=== PATIENT | female | born 1955 | race Caucasian/White ===

== ENCOUNTER → 2017-12-18 | Outpatient (CLI) | payer OTHER ==
[~2017-12-18] MED LIST: ALEVE220 MG PO; DESYREL150 MG PO; EXCEDRIN CAPLE1 EACH PO; LEXAPRO 10 MG T10 M1 PO; LEXAPRO20 MG PO; MEDROLDOSEPACK PO; NEURONTIN 300300 M1 PO
== END ==
LOC: M.MRI 16:55
DX: M47.892 Other spondylosis, cervical region (principal); M48.02 Spinal stenosis, cervical region

== ENCOUNTER → 2017-12-25 | Outpatient (CLI) | payer OTHER ==
--- NOTE | 2018-01-07 08:21 | PAINCON ---
[address] [address] PAIN MANAGEMENT CONSULTATION Name: JONAS MADRID Jessica Room: [facility] Hue#: [id number] Admission: 12/25/17 Attend Phys: Shakeel Monroy MD Discharge: Date of : 59 Report #: [id number] THIS REPORT FOR: //name// CC: Shakeel Main MD DATE OF SERVICE: 12/25/2017 CHIEF COMPLAINT: Pain in the neck and down into both arms with numbness and tingling. FOLLOWUP HISTORY: The patient is a 62-year-old female, who has been referred to the pain clinic for evaluation of bilateral arm pain with numbness and tingling. She states that she has had some problems for some period of time. It has been going on for greater than 3 years. She has undergone physical therapy. Did not note a significant improvement in her situation after that. She has been using gabapentin 300 mg and noticed a small benefit from that, but continues to have pain, which is still problematic. She has not had surgery. She notes that the pain can be variable. 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 Notes that toward the end of the day, her pain can be more problematic. She rates it at this juncture as a 9/10, during a normal day it can be a 4/10, in the evening by the time she sits down and rests, it can often times rise to the level of 6/10. Denies any history of trauma. She describes it as continuous, throbbing and the pain sometimes is worse when she is lying down. ALLERGIES: No known drug allergies. CURRENT MEDICATIONS: Gabapentin 300 mg tablets 2 tablets t.i.d., trazodone 150 mg at bedtime, calcium, vitamin D, and escitalopram 20 mg one-half tablet daily. PAST MEDICAL HISTORY: Cervical radiculopathy, OCD, back pain, family history of paralysis, irritable bowel syndrome, menopause, mixed hyperlipidemia, depression, plantar fasciitis. PAST SURGICAL HISTORY: Bilateral tubal ligation and hysterectomy in 05/2007. The patient still has both ovaries. FAMILY HISTORY: Positive for coronary artery disease in her father. Positive for colon cancer in her maternal grandfather. Positive type 2 diabetes in father. SOCIAL HISTORY: in 1996. Has 2 children. Denies use of alcoholic beverages. REVIEW OF SYSTEMS: Fatigue, headaches, wears glasses, glaucoma/cataracts, [place] [address] PAIN MANAGEMENT CONSULTATION Name: JONAS MADRID Room: [facility]#: [id number] Admission: 12/25/17 Attend Phys: Shakeel Monroy MD Discharge: Date of : 59 Report #: [id number] swelling in the feet and ankles, weakness of the muscles and joints, muscle pains or cramps, back pain, numbness and tingling sensation in the upper extremities, slow to heal easy bruising. PAIN CLINIC ASSESSMENT: 1. The patient is not being treated for osteoarthritis or rheumatoid arthritis. 2. Height 5 foot 3, weight 114 pounds, BMI is 20. 3. VITAL SIGNS: Blood pressure 98/45, heart rate 60, respiratory rate 16, room air saturation 98%, and temperature 97.6. 4. Pain intensity varies from a 4-9 depending on the time of day. 5. Fall risk. The patient has not fallen in the last 3 months. 6. Blood thinner. The patient is not on a blood thinner. 7. History of hypertension. The patient is not being treated for hypertension. 8. Opioid therapy greater than 6 weeks. The patient is not on opioid therapy greater than 6 weeks. 9. Risk assessment tool. 10. Functional assessment tool score 45/70. 11. Tobacco. The patient does not smoke. 12. Alcohol. The patient denies use of alcoholic beverages. LABORATORY DATA: MRI of the cervical spine dated 12/18/2017 reveals: 1. C3-C4, mild posterior disk bulging with mild effacement of the ventral thecal sac. There is bilateral degenerative facet disease, left greater than right. Left-sided neural foraminal narrowing is also present. 2. C4-C5 disk space narrowing and disk desiccation. There is a posterior disk osteophyte complex, which effaces the ventral thecal sac. The AP diameter of the central canal remains within normal limits approximately 12 mm. There is bilateral facet hypertrophy and symmetric bilateral neural foraminal narrowing. 3. C5-C6 disk space narrowing and disk desiccation with mild posterior disk bulging. There is subtle effacement of the ventral thecal sac. There is mild left-sided neural foraminal narrowing. The facet joints are unremarkable. 4. C6-C7 disk space narrowing and disk desiccation with a posterior disk osteophyte complex causing effacement of the ventral thecal sac. The AP diameter of the central canal is mildly narrowed at 10.3 mm. There is a T2 hyperintense signal along the left ventral surface of the cord, which measures 2 mm transverse x 8 mm craniocaudal. 5. C7-T1 mild posterior disk bulge without central canal or specific neural foraminal stenosis. PHYSICAL EXAMINATION: GENERAL: The patient is a well-developed and well-nourished white female. APPEARANCE: Appears her stated age. ORIENTATION: The patient is oriented x 3. AFFECT: The patient's affect is appropriate. HEENT: Normocephalic and atraumatic. Extraocular eye muscles intact. Hearing within normal limits. Sclerae nonicteric. [place] [address] PAIN MANAGEMENT CONSULTATION Name: MERCYJONAS Jessica Room: [facility]#: [id number] Admission: 12/25/17 Attend Phys: Shakeel Monroy MD Discharge: Date of : 59 Report #: [id number] NECK: Without JVD or bruits. Clear to auscultation. HEART: Regular rate. ABDOMEN: Nontender. MUSCULOSKELETAL: Without significant scoliosis, kyphosis or lordosis. EXTREMITIES: Upper extremities, judged to be 5/5 for the major muscle groups. Deep tendon reflexes are +2 at the biceps bilaterally. Park Interpretive Ranger strength is 5/5. Lower extremity muscles are judged to be 5/5 without neurological complaints. The patient does have some feelings of pain in her neck with some radiating down into the arms levels bilaterally with some numbness and tingling in the arms. IMPRESSION: 1. Bilateral neck pain with lumbar radicular pain radiating down into both arms bilaterally, which has been problematic over the last 3 years. 2. Hysterectomy cancer in 2006. 3. History of back pain. 4. Postmenopausal osteoporosis. 5. Irritable bowel symptoms. 6. Hyperlipidemia. 7. Depression. 8. History of plantar fasciitis. 9. Obsessive compulsive disorder. PLAN: We discussed the treatment options with the patient. She continues to have pain and discomfort, which is problematic. This has happened over the last 3 years. She has tried physical therapy and other activities and modalities without significant improvement. She feels that the gabapentin is helpful, but still finds that pain is still problematic, particularly in the evening and as the day goes on. She works around a computer/with the computer and notes that this has some input on how her pain and discomfort in her arms is perceived at the end of the day. RECOMMENDATIONS: We will try a Medrol Dosepak. We will see whether or not this conservative method will be of benefit. If her pain continues to be problematic, we will consider a cervical epidural steroid injection in the near future. Risks and benefits of the procedure were discussed. The patient will call us if she has any problems with the Medrol Dosepak. We would like to thank you for letting us participate in her care. We hope she continues to improve. <ELECTRONICALLY SIGNED> By: Shakeel Monroy MD 01/07/18 0821 1648 1940N. Darci Monroy MD /vu
== END ==
LOC: M.PC 12-18 08:00
DX: M81.0 Age-related osteoporosis without current pathological fracture (principal); E78.5 Hyperlipidemia, unspecified; F32.9 Major depressive disorder, single episode, unspecified; M54.16 Radiculopathy, lumbar region; M72.2 Plantar fascial fibromatosis; F42.9 Obsessive-compulsive disorder, unspecified; Z87.39 Personal history of other diseases of the musculoskeletal system and connective tissue; Z90.710 Acquired absence of both cervix and uterus

== ENCOUNTER → 2018-01-13 | Outpatient (CLI) | payer OTHER ==
--- NOTE | 2018-02-04 08:18 | PAINCON ---
[address] [address] PAIN MANAGEMENT CONSULTATION Name: JONAS MADRID Jessica Room: [facility] Hue#: [id number] Admission: 01/13/18 Attend Phys: Shakeel Monroy MD Discharge: Date of : 59 Report #: [id number] THIS REPORT FOR: //name// CC: Shakeel Main MD DATE OF SERVICE: 01/13/2018 FOLLOWUP COMPLAINT: Pain in the neck which radiates down into both arms. FOLLOWUP HISTORY: The patient is a 62-year-old female who has been seen in the Pain Clinic because of pain and discomfort which she has been experiencing. She has had pain which has radiated down into her arms bilaterally. There has been numbness and tingling problems. She has had some problems going on greater than 3 years. She has undergone physical therapy and continued to have pain in spite of that. She is using gabapentin 300 mg with some benefit. She has not had surgery. She continues to work and notes that use of a computer can exacerbate pain and discomfort. She rates her pain as a 6/10 at this juncture. She was provided a Medrol Dosepak at the last visit. She returns today and finds that her pain continues to be problematic and distressing. She has returned today and feels that conservative treatment has not worked adequately and would like to proceed at this juncture with a cervical epidural steroid injection. ALLERGIES: No known drug allergies. CURRENT MEDICATIONS: Gabapentin 300 mg two tablets 1 p.o. t.i.d., trazodone 150 mg at bedtime, calcium, vitamin D, escitalopram 20 mg one-half tablet daily, recent use of a Medrol Dosepak. PAIN CLINIC ASSESSMENT: 1. The patient is not being treated for osteoarthritis or rheumatoid arthritis. 2. Height 5 feet 3, weight 114 pounds, BMI is 20. 3. VITAL SIGNS: Blood pressure 102/68, heart rate 63, respiratory rate 16, room air saturations 98% and temperature 98. 4. Pain intensity 03/15. 5. Fall risk. The patient has not fallen in the last 3 months. 6. Blood thinner. The patient is not on any blood thinner. 7. History of hypertension. The patient is not being treated for hypertension. 8. Opioid therapy, greater than 6 weeks. The patient is not on an opioid therapy regimen for greater than 6 weeks. 9. Risk assessment tool: A. Functional assessment tool 45/70 showing moderate amount of problems with activities of daily living secondary to pain. B. Tobacco: The patient does not smoke tobacco. C. Alcohol The patient denies [place] [address] PAIN MANAGEMENT CONSULTATION Name: JONAS MADRID Room: [facility]#: [id number] Admission: 01/13/18 Attend Phys: Shakeel Monroy MD Discharge: Date of : 59 Report #: [id number] PHYSICAL EXAMINATION: GENERAL: The patient is a well-developed, well-nourished white female. She appears her stated age. Affect is appropriate. Speech is smooth. Orientation: The patient is alert and oriented x 3. HEENT: Normocephalic, atraumatic. Extraocular eye muscles intact. Hearing within normal limits, sclerae are nonicteric. Mucous membranes are moist. NECK: Without JVD or bruits. Reasonable range of motion. CHEST: Clear to auscultation without rhonchi or rales. HEART: Regular rate, normal S1, S2. ABDOMEN: Nontender without organomegaly. MUSCULOSKELETAL: Without significant scoliosis, kyphosis or lordosis. EXTREMITIES: Upper extremity is judged to be 5/5 for the major muscle groups. Deep tendon reflexes are +2 at the biceps bilaterally. Program Review Director strength is 5/5. Lower extremity muscle strength is judged to be 5/5 without neurologic complaints. The patient does have feeling of pain in her neck with some radiating down into her arms bilaterally with numbness and tingling involving her arms. IMPRESSION: 1. Bilateral neck pain with lumbar radiculopathy radiating down into both arms. This has been problematic over last 3 years. 2. Hysterectomy -- cancer in 2006. 3. History of back pain. 4. Postmenopausal osteoporosis. 5. Irritable bowel syndrome. 6. Hyperlipidemia. 7. Depression. 8. History of plantar fasciitis. 9. Obsessive-compulsive disorder. RECOMMENDATIONS: We have discussed treatment options with the patient. Again, risks and benefits of a cervical epidural steroid injection were discussed. Possible complications of the procedure, which could include but are not limited to infection, increased muscle soreness, bleeding, nerve damage or trauma, increased pain, no improvement in pain, spinal headache were discussed. The patient elects to proceed. PROCEDURE NOTE: The patient was helped in the treatment room on to the table. Her neck was sterilely prepped with a Betadine solution. 0.25% bupivacaine was infiltrated in the C7-T1 interspace. Fluoroscopy using anterior, posterior as well as a lateral view was used for appropriate placement of the injection. The area was localized. A 17-gauge Tuohy with loss of resistance technique was used to gain access to the epidural space. There was no CSF, heme or paresthesia. Total of 80 mg Depo-Medrol, 40 mg triamcinolone and 2 mL of 0.25% bupivacaine was injected. Total of 20 seconds fluoroscopy time was used. The patient was [address] [place] [address] PAIN MANAGEMENT CONSULTATION Name: JONAS MADRID Room: [facility]#: [id number] Admission: 01/13/18 Attend Phys: Shakeel Monroy MD Discharge: Date of : 59 Report #: [id number] then taken to the recovery area. A Band-Aid had been placed. There was no bleeding. Her pain had decreased to 3/10 at the time of discharge. She remained in the pain clinic for an appropriate amount of time. We would like to thank you for letting us participate in her care. We hope she continues to improve. <ELECTRONICALLY SIGNED> By: Shakeel Monroy MD 02/04/18 0818 1344 [id number]. Darci Monroy MD /[facility]
== END | disposition home or self-care (01) ==
LOC: M.PC 03:04
DX: M54.12 Radiculopathy, cervical region (principal); M54.16 Radiculopathy, lumbar region; M81.0 Age-related osteoporosis without current pathological fracture; E78.5 Hyperlipidemia, unspecified; F32.9 Major depressive disorder, single episode, unspecified; F42.9 Obsessive-compulsive disorder, unspecified; Z79.899 Other long term (current) drug therapy; Z90.710 Acquired absence of both cervix and uterus; Z98.890 Other specified postprocedural states

== ENCOUNTER → 2018-02-10 | Outpatient (CLI) | payer OTHER ==
--- NOTE | 2018-02-17 10:23 | PAINCON ---
[address] [address] PAIN MANAGEMENT CONSULTATION Name: JONAS MADRID Jessica [id number] Admission: 02/10/18 Attend Phys: Shakeel Monroy MD Discharge: Date of : 59 Report #: [id number] THIS REPORT FOR: //name// CC: Shakeel Main MD DATE OF SERVICE: 02/10/2018 FOLLOWUP COMPLAINT: Continued pain and discomfort down into the right arm with numbness, tingling and weakness and have been dropping things. FOLLOWUP HISTORY: The patient is a 62-year-old female, who has been seen in the pain clinic because of cervical radiculopathy. She underwent an epidural steroid injection involving the cervical area at the last visit. She notes that her pain continues to be problematic. It is impacting her life significantly during the course of day. She rates her pain as a 5/6. Continues to have pain, which radiates down into the right arm with numbness, weakness and tingling even down into her hands. She has as you recall undergone physical therapy. She continues to do these exercises. She has used gabapentin. Finds that this medication is of some benefit, but still has pain and discomfort which is somewhat disquieting. She had her trazodone increased from 150 mg to 300 mg. She feels that this has improved her sleep. Overall with improvement of sleep, she feels like things are a little bit more manageable, but still quite problematic. She recently fell. She was carrying an item and trying to cross over a gate, which was used to keep the dog in a certain area of her home. She fell. She denies any trauma. No loss of consciousness. No significant impact upon her condition. She is not sure that she wants to undergo surgery if this was needed, but would like to undergo an additional cervical epidural steroid injection to glean more improvement. ALLERGIES: No known drug allergies. MEDICATIONS: Gabapentin 300 mg 1 tablet p.o. t.i.d., trazodone 300 mg at bedtime, calcium, vitamin D, escitalopram 20 mg one-half tablet daily. PAIN CLINIC ASSESSMENT: 1. The patient is not being treated for osteoarthritis or rheumatoid arthritis. 2. Height 5 feet 3 inches, weight 109 pounds, BMI is 19. 3. VITAL SIGNS: Blood pressure 128/59, heart rate 68, respiratory rate 16, room air saturation 96%, temperature 98.9. 4. Pain intensity 6/10. 5. Fall risk. The patient fell after trying to straddle a fence in the house, which kept the dog in a certain area and had her hands full. She was unhurt. 6. Blood thinner. The patient is not on a blood thinner. 7. History of hypertension. The patient is not being [place] [address] PAIN MANAGEMENT CONSULTATION Name: MERCYJONAS D Room: [facility]#: [id number] Admission: 02/10/18 Attend Phys: Shakeel Monroy MD Discharge: Date of : 59 Report #: [id number] 8. Opioid therapy. The patient is not on an opioid regimen on a regular basis. 9. Risk assessment tool. 10. Functional assessment tool 45/70, indicating moderate amount of problems with activities of daily living secondary to the pain. 11. Tobacco: The patient denies use of tobacco. 12. Alcohol. The patient denies use of alcoholic beverages. PHYSICAL EXAMINATION: GENERAL: The patient is a well-developed white female. She is thin. She appears well nourished. Affect is appropriate. Speech is smooth. She is alert and oriented x 3. HEENT: Normocephalic, atraumatic. Extraocular eye muscles intact. Sclerae nonicteric. Hearing is within normal limits. Mucous membranes are moist. NECK: Without JVD or bruits. Reasonable range of motion. CHEST: Clear to auscultation without rhonchi or rales. HEART: Regular rate, normal S1, S2. ABDOMEN: Nontender, without organomegaly. MUSCULOSKELETAL: Without significant scoliosis, kyphosis or lordosis. Deep tendon reflexes are +2 for the biceps bilaterally. Pill Maker strength is judged to be 5/5. The patient does experience what she considers some weakening of her filler spreader strength. Lower extremities, 5/5 for the major muscle groups of the lower extremity. IMPRESSION: 1. Bilateral neck pain with discomfort radiating down into both arms. The patient has some perception of decreasing strength and sensory changes. 2. Hysterectomy -- cancer in 2006. 3. History of back pain. 4. Postmenopausal osteoporosis. 5. Irritable bowel syndrome. 6. Hyperlipidemia. 7. Depression. 8. History of plantar fasciitis. 9. Obsessive-compulsive disorder. RECOMMENDATIONS: We discussed treatment options with the patient. At this juncture, she is still experiencing pain and discomfort, which is radiating down into her right arm. She is unable to engage in activities because of this. Notes that there is some weakness in her right arm as well as in the filler spreader strength. She has dropped a number of items. RECOMMENDATIONS: We will proceed with another cervical epidural steroid injection to see if the patient will gain an improvement in her pain and discomfort and sensory changes, which she is experiencing. She will return to the pain clinic at which time she will undergo another cervical epidural steroid injection. Risks and benefits of the procedure were again reviewed. Possible [facility] [address] [place] [address] PAIN MANAGEMENT CONSULTATION Name: JONAS MADRID Room: [facility]#: [id number] Admission: 02/10/18 Attend Phys: Shakeel Monroy MD Discharge: Date of : 59 Report #: [id number] complications were discussed. The patient elects to proceed after she has been granted permission by her insurance company. <ELECTRONICALLY SIGNED> By: Shakeel Monroy MD 02/17/18 1023 1410 1933N. Darci Monroy MD /nt
== END ==
LOC: M.PC 03:54
DX: M54.2 Cervicalgia (principal); M81.0 Age-related osteoporosis without current pathological fracture; E78.5 Hyperlipidemia, unspecified; K58.9 Irritable bowel syndrome, unspecified; F32.9 Major depressive disorder, single episode, unspecified; F42.9 Obsessive-compulsive disorder, unspecified; M54.9 Dorsalgia, unspecified; M72.2 Plantar fascial fibromatosis; Z90.710 Acquired absence of both cervix and uterus

== ENCOUNTER → 2018-03-05 | Outpatient (CLI) | payer OTHER ==
--- NOTE | 2018-03-18 14:05 | PAINCON ---
[address] [address] PAIN MANAGEMENT CONSULTATION Name: JONAS MADRID Jessica [id number] Admission: 03/05/18 Attend Phys: Shakeel Monroy MD Discharge: Date of : 59 Report #: [id number] THIS REPORT FOR: //name// CC: Shakeel Main MD DATE OF SERVICE: 03/05/2018 FOLLOWUP COMPLAINT: Noticed an improvement after the last epidural steroid injection. FOLLOWUP HISTORY: The patient is a 62-year-old female who has been seen in the pain clinic because of cervical radiculopathy. She underwent an epidural steroid injection at the last visit. As you recall, she has noted some weakness in her right arm with numbness, tingling and weakness. She underwent an epidural steroid injection at the last visit and gleaned greater than 50% improvement. She rates her pain as a 7/10 today. Continues to use Naprosyn, and gabapentin. Feels that the weakness and pain continue to impact her daily life. As you recall, she has undergone physical therapy and continues to try to perform these activities. At this juncture, she would like to proceed with another epidural steroid injection. As you recall, she is not sure if she would like to undergo surgery and she elects to proceed with another cervical epidural steroid injection at this juncture. ALLERGIES: No known drug allergies. MEDICATIONS: Gabapentin 300 mg 1 tablet p.o. t.i.d., trazodone 300 mg at bedtime, calcium, vitamin D, escitalopram 20 mg one-half tablet daily. PAIN CLINIC ASSESSMENT: 1. The patient is not being treated for rheumatoid arthritis, but did have some arthritic changes in her cervical spine. 2. Height 5 foot 3 inches, weight 113 pounds, BMI is 20. 3. Vital Signs: Blood pressure 159/56, heart rate 74, respiratory rate 16, room air saturation 93%, temperature 98.6. 4. Pain intensity 04/14. 5. Fall risk. The patient fell while trying to straddle a fence in an effort to keep the dog in an area when her hands were full. Denies any worsening of her pain and discomfort. She was unhurt. 6. Blood thinner. The patient is not on a blood thinning medication. 7. History of hypertension. The patient is not being treated for hypertension. 8. Opioid therapy. The patient is not being treated with opioid therapy regimen. 9. Risk assessment tool. 10. Functional assessment tool 45/70 indicating [place] [address] PAIN MANAGEMENT CONSULTATION Name: MERCYJONAS D Room: [facility]#: [id number] Admission: 03/05/18 Attend Phys: Shakeel Monroy MD Discharge: Date of : 59 Report #: [id number] with activities of daily living secondary to pain. 11. Tobacco: The patient denies use of tobacco. 12. Alcohol: The patient denies use of alcoholic beverages. PHYSICAL EXAMINATION: GENERAL: The patient is a well-developed white female. She is somewhat thinly built. She has fluent speech. She is alert and oriented x 3, appears her stated age. HEENT: Normocephalic, atraumatic. Extraocular eye muscles intact. Sclerae nonicteric. Hearing is within normal limits. Mucous membranes are moist. NECK: Without JVD or bruits reasonable range of motion. CHEST: Clear to auscultation without rhonchi or rales. HEART: Regular rate, normal S1, S2. ABDOMEN: Nontender, without organomegaly. MUSCULOSKELETAL: Without significant scoliosis, kyphosis or lordosis. Deep tendon reflexes are +2 for the biceps bilaterally. Assembly Supervisor strength is judged to be 5/5. The patient does experience some weakness of her arm with psychiatric technician assistant strength. She has been dropping things. Lower extremity muscle strength is within normal limits. Sensory exam is without deficit. Toe raising and heel raising possible. IMPRESSION: 1. Bilateral neck pain with discomfort radiating down into both arms. The patient has some perception of decreased strength, sensation, and sensory changes. 2. Hysterectomy -- cancer in 2006. 3. History of back pain. 4. History of postmenopausal osteoporosis. 5. Irritable bowel syndrome. 6. Hyperlipidemia. 7. Depression. 8. History of plantar fasciitis. 9. Obsessive-compulsive disorder. RECOMMENDATIONS: We discussed treatment options with the patient. At this juncture, we will proceed with another epidural steroid injection. Risks and benefits of the procedure were again reviewed. They include but are not limited to infection, increased muscle soreness, headache, bleeding, worsening of pain, paralysis, spinal headache. The patient elects to proceed. PROCEDURE NOTE: The patient was placed in the prone position. Her back was sterilely prepped with a Betadine solution. Fluoroscopy was used to identify the C7-T1 interspace. Anterior, posterior as well as lateral viewing was used to identify the appropriate area. A 17-gauge Tuohy with loss of resistance technique was used to gain access to the epidural space. A total of 120 mg triamcinolone was injected after this area had been infiltrated with 0.25% [place] [address] PAIN MANAGEMENT CONSULTATION Name: JONAS MADRID Room: [facility]#: [id number] Admission: 03/05/18 Attend Phys: Shakeel Monroy MD Discharge: Date of : 59 Report #: [id number] bupivacaine. The patient tolerated the procedure well. There were no complications. She remained in the pain clinic for an appropriate amount of time. We would like to thank you for letting us participate in her care. We hope she continues to improve. <ELECTRONICALLY SIGNED> By: Shakeel Monroy MD 03/18/18 1405 1558 [id number]. Darci Monroy MD /[facility]
== END | disposition home or self-care (01) ==
LOC: M.PC 00:52
DX: M54.12 Radiculopathy, cervical region (principal); G89.29 Other chronic pain; E78.5 Hyperlipidemia, unspecified; F32.9 Major depressive disorder, single episode, unspecified; Z87.19 Personal history of other diseases of the digestive system; Z90.710 Acquired absence of both cervix and uterus; Z98.890 Other specified postprocedural states; Z79.899 Other long term (current) drug therapy

== ENCOUNTER → 2018-03-31 | Outpatient (CLI) | payer OTHER ==
--- NOTE | 2018-04-02 15:18 | PAINCON ---
[facility] [address] [place] [address] PAIN MANAGEMENT CONSULTATION Name: JONAS MADRID Jessica Room: [facility] Hue#: [id number] Admission: 03/31/18 Attend Phys: Shakeel Monroy MD Discharge: Date of : 59 Report #: [id number] THIS REPORT FOR: //name// CC: Shakeel Main DATE OF SERVICE: 03/31/2018 FOLLOWUP COMPLAINT: Pain is 50% better. I would like to have another injection. FOLLOWUP HISTORY: The patient is a 62-year-old female who has been seen in the pain clinic because of cervical radiculopathy. She has undergone epidural steroid injection. Notes that her pain continues to improve. She still has some pain and discomfort involving her right arm with numbness and tingling. She feels that there is less pain and discomfort during the day. She does still have some numbness and tingling at night when she goes to bed. Overall, she has noted improvements. She would like to proceed with another cervical epidural steroid injection. She is happy with the results. She has had no complications. She rates her pain as 5/10 at this juncture. Does continue to use trazodone and gabapentin. Feels that both of these medications are helpful. She has had no complication from the past intervention. ALLERGIES: No known drug allergies. MEDICATIONS: Gabapentin 300 mg 1 tablet p.o. t.i.d., trazodone 300 mg at bedtime, calcium, vitamin D, escitalopram 20 mg 1-1/2 tablet daily. PAIN CLINIC ASSESSMENT: 1. The patient is not being treated for rheumatoid arthritis, does have some arthritic changes in her cervical spine. 2. Height 5 feet 3 inches, weight 113 pounds, BMI is 20. 3. Vital signs: Blood pressure 104/67, heart rate 69, respiratory rate 16, room air saturation 97%, temperature 98.3. 4. Pain intensity: 5/10. 5. Fall risk: The patient has not fallen in the last 3 months. 6. Blood thinner: The patient is not on a blood thinning medication. 7. Hypertension: The patient has not been treated for hypertension. 8. Opioid therapy greater than 6 weeks. The patient has not been on opioid therapies greater than 6 weeks. 9. Risk assessment tool. 10. Functional assessment tool. 11. Recreational drug use. The patient denies use of recreational drugs. 12. Tobacco: The patient denies use of tobacco. 13. Alcohol: The patient denies frequent use [place] [address] PAIN MANAGEMENT CONSULTATION Name: JONAS MADRID Room: [facility]#: [id number] Admission: 03/31/18 Attend Phys: Shakeel Monroy MD Discharge: Date of : 59 Report #: [id number] PHYSICAL EXAMINATION: GENERAL: The patient is a well-developed, well-nourished white female. Appears her stated age. Speech is fluent, has a slightly thin build. Alert and oriented x 3. HEENT: Normocephalic, atraumatic. Extraocular eye muscles intact. Sclerae nonicteric. Hearing within normal limits. Mucous membranes are moist. NECK: Without JVD or adenopathy. Good range of motion. CHEST: Clear to auscultation without rhonchi or rales. HEART: Regular rate, normal S1, S2. ABDOMEN: Nontender. MUSCULOSKELETAL: Without significant scoliosis, kyphosis or lordosis. Deep tendon reflexes in the upper extremities +2 for the biceps bilaterally. Resaw Operator strength is judged to be 5/5. The patient does have pain and discomfort, which radiates down into her arms bilaterally, particularly in the evening and after being in bed. Lower extremity muscle strength is judged to be 5/5 for the major muscle groups without sensory changes. IMPRESSION: 1. Bilateral neck pain with discomfort radiating down into the arms, improved greater than 50% since the onset of the cervical epidural steroid injections. 2. Hysterectomy, cancer in 2006. 3. History of back pain. 4. History of postmenopausal osteoporosis. 5. Irritable bowel syndrome. 6. Hyperlipidemia. 7. Depression. 8. History of plantar fasciitis. 9. Obsessive compulsive disorder. RECOMMENDATIONS: We discussed treatment options with the patient. Risks and benefits of another cervical epidural steroid injection were discussed. The patient feels that the benefit that she has received has been good. She is having less pain and discomfort during the daytime, still has some numbness and tingling down into her arms at night. She would like to proceed with another epidural steroid injection. Rates her pain as 5/10 at this juncture. She had no complication from the last injection. Overall, she feels that things are going reasonably well, feels that her medications are helping and would like to proceed with a third cervical epidural steroid injection to help improve upon her pain. She will follow up in the future as soon as her insurance company acknowledges that she can. We will then proceed with a cervical epidural steroid injection. [address] [address] PAIN MANAGEMENT CONSULTATION Name: JONAS MADRID [facility]: [facility]#: [id number] Admission: 03/31/18 Attend Phys: Shakeel Monroy MD Discharge: Date of : 59 Report #: [id number] We would like to thank you for letting us participate in her care. We hope she continues to improve. <ELECTRONICALLY SIGNED> By: Shakeel Monroy MD 04/02/18 1518 1248 [id number]. Darci Monroy MD /nt
== END ==
LOC: M.PC 05:01
DX: M54.12 Radiculopathy, cervical region (principal); M54.2 Cervicalgia; E78.5 Hyperlipidemia, unspecified; K58.9 Irritable bowel syndrome, unspecified; F32.9 Major depressive disorder, single episode, unspecified; F42.9 Obsessive-compulsive disorder, unspecified

== ENCOUNTER → 2018-04-15 | Outpatient (CLI) | payer OTHER ==
--- NOTE | 2018-04-16 07:04 | PAINCON ---
[facility] [address] [place] [address] PAIN MANAGEMENT CONSULTATION Name: JONAS MADRID Jessica [id number] Admission: 04/15/18 Attend Phys: Jessica Dalton Discharge: Date of : 59 Report #: [id number] THIS REPORT FOR: //name// CC: Mert Paul The patient is a very pleasant 62-year-old female, typically treated by Dr. Darci oMnroy for symptomatic cervical radiculopathy. She has had cervical epidural injections on 01/13/2018 and 03/05/2018. The patient returns to pain clinic today. She was seen on 03/30/[address] Darci Monroy. She had good incremental improvement following injections, but still had ongoing pain. They sought authorization for epidural injection under fluoroscopy. She presents to pain clinic today for this procedure. She notes pain is primarily left greater than right arm. Paresthesia is improving. Neck pain continues to be problematic. She rates her pain 4 on a VAS. PHYSICAL EXAMINATION: Otherwise shows a pleasant 62-year-old female, BMI is 20.1 kilograms per meter squared. Blood pressure is 99/63, pulse 62, respirations 16. Cervical range of motion is limited. Positive Lhermitte's. Upper extremity strength is preserved. ASSESSMENT: Symptomatic cervical radiculopathy by clinical exam and history. Good incremental relief following prior injections.` RECOMMENDATIONS: Cervical epidural injection under fluoroscopy today, follow up simply as needed. PROCEDURE: Cervical epidural injection. PROCEDURE NOTE: After written and informed consent was obtained including risk of dural puncture, spinal cord trauma, paralysis and increased pain, the patient was taken to the fluoroscopy suite and placed in the prone position, with appropriate abdominal bolstering, neck was flexed, palms under the thighs. Skin was prepped with ChloraPrep. Sterile draping was applied. Skin wheal with 1% Xylocaine was raised. A 22-gauge 3-1/2 inch epidural Tuohy needle was placed via a midline approach at the C7-T1 interspace, advanced under biplanar fluoroscopy using continuous loss of resistance. With appropriate loss of resistance at the expected depth on lateral view, the glass loss of resistance syringe was disconnected. A low volume extension tubing was connected to the needle and a 5 mL syringe. Negative aspiration for cerebrospinal fluid or blood was noted. No Omnipaque was injected due to a history of IODINE allergy. This was followed with 80 mg of triamcinolone plus 1 mL of 1.5% preservative Xylocaine. Needle was withdrawn to the interspinous ligament, 0.5 mL of Xylocaine was used to flush the needle. [place] [address] PAIN MANAGEMENT CONSULTATION Name: JONAS MADRID [facility]: [facility]#: [id number] Admission: 04/15/18 Attend Phys: Jessica Dalton Discharge: Date of : 59 Report #: [id number]. The area was cleansed. Band-Aid was applied. The patient was allowed to move off the procedure table and ambulated to the recovery room, monitored for an appropriate period of time, discharged in good and stable condition. <ELECTRONICALLY SIGNED> By: Bonilla Paul DO 04/16/18 0704 [id number] Paul DO /nt
== END | disposition home or self-care (01) ==
LOC: M.PC 04:46
DX: M54.12 Radiculopathy, cervical region (principal); Z98.890 Other specified postprocedural states; Z91.041 Radiographic dye allergy status; Z79.899 Other long term (current) drug therapy

== ENCOUNTER → 2020-03-13 | Outpatient (CLI) | payer OTHER | LOC: M.RAD 14:12 | PROVIDERS: ATTEND Nurse Practitioner Family | DX: Z12.31 Encounter for screening mammogram for malignant neoplasm of breast (principal); M81.0 Age-related osteoporosis without current pathological fracture; M81.8 Other osteoporosis without current pathological fracture ==

== ENCOUNTER → 2021-03-30 | Outpatient (CLI) | payer OTHER | LOC: M.ULTRA 08:56 | PROVIDERS: ATTEND Family Medicine | DX: Z12.31 Encounter for screening mammogram for malignant neoplasm of breast (principal); R10.9 Unspecified abdominal pain ==

== ENCOUNTER → 2021-08-27 | Outpatient (CLI) | payer OTHER | LOC: M.RAD 09:49 | PROVIDERS: ATTEND Internal Medicine | DX: M85.88 Other specified disorders of bone density and structure, other site (principal); M81.0 Age-related osteoporosis without current pathological fracture ==